=== PATIENT | female | born 1970 | race African-American/Black ===

== ENCOUNTER 2017-03-02 15:09 | Emergency (ER) | payer SELFPAY ==
[~2017-03-02] VITALS: Ht 152.4 cm; Wt 59.0 kg
[2017-03-02 15:27] VITALS: BP 130/78
--- NOTE | 2017-03-02 15:51 | PHYS DOC ---
Past Medical History Past Medical History: No Pertinent History Past Surgical History: , Hysterectomy, Other Additional Past Surgical Histo: BRAIN SX Alcohol Use: None Drug Use: None Adult General Chief Complaint Chief Complaint: EARACHE/EAR PAIN HPI HPI Patient is a 46 year old female presents to the emergency department stating that she has had 1-1/2 weeks of right ear pain and discomfort. She states that she has been having decreased ability to hear out of the right ear. She denies any upper respiratory congestion sore throat or runny nose. She states that she did try to use 2 she did try to clean her out her ear without success. Review of Systems Review of Systems Constitutional: Denies fever or chills [] Eyes: Denies change in visual acuity, redness, or eye pain [] HENT: Denies nasal congestion or sore throat. Right ear discomfort and pain Respiratory: Denies cough or shortness of breath [] Cardiovascular: No additional information not addressed in HPI [] GI: Denies abdominal pain, nausea, vomiting, bloody stools or diarrhea [] : Denies dysuria or hematuria [] Musculoskeletal: Denies back pain or joint pain [] Integument: Denies rash or skin lesions [] Neurologic: Denies headache, focal weakness or sensory changes [] Endocrine: Denies polyuria or polydipsia [] Current Medications Current Medications Current Medications Medications (Trade) Dose Ordered Sig/Stephani Start Time Stop Time Status Last Admin Dose Admin Docusate Sodium (Colace Solution) 100 mg 1X ONCE 03/02/17 16:45 03/02/17 16:49 DC 03/02/17 16:54 100 MG Allergies Allergies Allergies Coded Allergies Type Severity Reaction Last Updated Verified No Known Drug Allergies 03/02/17 No Physical Exam Physical Exam Constitutional: Well developed, well nourished, no acute distress, non-toxic appearance. [] HENT: Normocephalic, atraumatic, bilateral external ears normal, oropharynx moist, no oral exudates, nose normal. Left tympanic membrane normal. Right tympanic membrane unable to visualize due to history of an impaction. Eyes: PERRLA, EOMI, conjunctiva normal, no discharge. [] Neck: Normal range of motion, no tenderness, supple, no stridor. [] Cardiovascular:Heart rate regular rhythm, no murmur [] Lungs & Thorax: Bilateral breath sounds clear to auscultation [] Skin: Warm, dry, no erythema, no rash. [] Back: No tenderness Extremities: No tenderness, no cyanosis, no clubbing, ROM intact, no edema. [] Neurologic: Alert and oriented X 3, normal motor function, normal sensory function, no focal deficits noted. [] Psychologic: Affect normal, judgement normal, mood normal. [] Current Patient Data Vital Signs Vital Signs Date Time Temp Pulse Resp B/P (MAP) Pulse Ox O2 Delivery O2 Flow Rate FiO2 03/02/17 15:27 98.2 70 16 99 Room Air 98.2 EKG EKG [] Radiology/Procedures Radiology/Procedures [] Course & Med Decision Making Course & Med Decision Making Pertinent Labs and Imaging studies reviewed. (See chart for details) Patient's air was irrigated with water and peroxide with minimal relief. Colace was placed into the ear and then reirrigated with minimal results noted. Patient still continues to have large amount of wax in the right ear. Unable to visualize the tympanic membrane. Patient will be placed on amoxicillin with recommendations for Debrox [id number]. Recommended following up with her primary care physician or ENT within the next week. Signs and symptoms to return back to emergency department as been provided. Patient's questions were all answered at bedside. [] Dragon Disclaimer Dragon Disclaimer This electronic medical record was generated, in whole or in part, using a voice recognition dictation system. Departure Departure Impression: Primary Impression: Impacted cerumen, right ear Disposition: 01 HOME, SELF-CARE Condition: STABLE Referrals: NO PCP (PCP) Patient Instructions: Cerumen Impaction Additional Instructions: Your area was irrigated twice to remove earwax without relief. You may purchase Debrox [id number] in which will help relieve the wax to be easily removed. He'll be covered for antibiotic for a potential infection as the tympanic membrane is unable to be visualized. Follow-up with your primary care physician or an ENT within the next week. You may contact an ENT either at [facility] or a for further evaluation. Return back to emergency prior signs and symptoms of become worse. Scripts Amoxicillin (AMOXICILLIN) 500 Mg Capsule 1 CAP PO BID, #20 CAP Prov: HEATHER MORAN APRN 03/02/17 HEATHER MORAN APRN Mar 02, 2017 15:51
[2017-03-02] MEDS ORDERED: DOCUSATE 100 MG/10 ML SOLUTION. AD ONE (16:45)
[2017-03-02] MEDS ORDERED: AMOX500C PO (17:56)
== END 2017-03-02 18:00 | disposition home or self-care (01) ==
LOC: ER 15:09
DX: H61.21 Impacted cerumen, right ear (principal)
CPT/HCPCS: 99283

== ENCOUNTER 2019-04-25 08:35 | Inpatient (IN) | payer SELFPAY ==
[~2019-04-25] VITALS: Ht 152.4 cm; Wt 61.2 kg
[~2019-04-25 08:35] MED LIST: AMOX500C PO
--- NOTE | 2019-04-25 08:56 | PHYS DOC ---
Past Medical History Past Medical History: No Pertinent History Past Surgical History: , Hysterectomy, Other Additional Past Surgical Histo: BRAIN SX Alcohol Use: None Drug Use: None Adult General Chief Complaint Chief Complaint: FINGER INJURY [facility] HPI Patient is a 49 year old handed female who presents with complaining of left middle finger pain. Patient states she was scrubbing her kitchen of the floor and had this pain in keep of left middle finger 4 days ago with received edema and pain and tenderness of her finger. Patient denies fever and chills and focal neurodeficit. Patient is up-to-date with tetanus immunization. Review of Systems Review of Systems Constitutional: Denies fever or chills [] Eyes: Denies change in visual acuity, redness, or eye pain [] HENT: Denies nasal congestion or sore throat [] Respiratory: Denies cough or shortness of breath [] Cardiovascular: No additional information not addressed in HPI [] GI: Denies abdominal pain, nausea, vomiting, bloody stools or diarrhea [] : Denies dysuria or hematuria [] Musculoskeletal: Denies back pain, reports joint pain [] Integument: Denies rash or skin lesions [] Neurologic: Denies headache, focal weakness or sensory changes [] Endocrine: Denies polyuria or polydipsia [] All other systems were reviewed and found to be within normal limits, except as documented in this note. Current Medications Current Medications Current Medications Medications (Trade) Dose Ordered Sig/[facility] Start Time Stop Time Status Last Admin Dose Admin Lidocaine HCl (Lidocaine 1% 20ml Vial) 20 ml 1X ONCE 04/25/19 09:00 04/25/19 09:01 DC Allergies Allergies Allergies Coded Allergies Type Severity Reaction Last Updated Verified No Known Drug Allergies 03/02/17 No Physical Exam Physical Exam Constitutional: Well developed, well nourished, mild distress, non-toxic appearance. [] HENT: Normocephalic, atraumatic. Eyes: PERRLA, EOMI, conjunctiva normal, no discharge. [] Neck: Normal range of motion, no tenderness, supple, no stridor. [] Cardiovascular:Heart rate regular rhythm, no murmur [] Lungs & Thorax: Bilateral breath sounds clear to auscultation [] Extremities: Left middle finger with moderate edema and mild erythema with tenderness of tip of finger with abscess of finger tip in volar side without drainage of pus . Neurologic: Alert and oriented X 3, no focal deficits noted. [] Psychologic: Affect normal, judgement normal, mood normal. [] Current Patient Data Vital Signs Vital Signs Date Time Temp Pulse Resp B/P (MAP) Pulse Ox O2 Delivery O2 Flow Rate FiO2 04/25/19 08:55 98.0 78 14 120/70 (87) 98 Room Air 98.0 EKG EKG [] Radiology/Procedures Radiology/Procedures [][facility] [address] [place] [address] IMAGING REPORT Signed PATIENT: OTF GREER ACCOUNT: [id number] : 1970 LOCATION: ER AGE: 49 SEX: F EXAM STATUS: REG ER ORD. PHYSICIAN: ISAIAH CARPIO MD REASON: middle finger possible foreign body PROCEDURE: FINGER(S) LEFT 3 view study of the third digit left hand Clinical indications: foreign body FINDINGS: There is a 13 mm metallic nail within the soft tissues just anterior to the distal phalanx. No fracture or lytic process or dislocation is seen. IMPRESSION: 13 mm metallic nail within the distal third digit of the left hand. Electronically signed by: Maura Posada MD (04/25/2019 9:20 AM) [id number] DICTATED and SIGNED BY: MAURA POSADA MD DATE: 04/25/19919 Course & Med Decision Making Course & Med Decision Making Pertinent Labs and Imaging studies reviewed. (See chart for details) Evaluation of patient in ER showed 49-year-old female patient with injury and foreign body of left middle finger. X-ray showed large metallic needle in deep pulsatile finger. On- call orthopedic physician Dr Moreira was consulted at 09 and recommended to admit patient for surgical treatment of foreign body and abscess of left middle finger.Patient requiring admission for further evaluation and treatment. Discussed with Dr. Villarreal who is in agreement with admission. Discussed findings and plan with patient and family, who acknowledge understanding and agreement. Dragon Disclaimer Dragon Disclaimer This electronic medical record was generated, in whole or in part, using a voice recognition dictation system. Departure Departure Impression: Primary Impression: Foreign body of left middle finger with infection Disposition: 09 ADMITTED INPATIENT (at 1008) Admitting Physician: FILIPPO (Dr. Villarreal accepted admission at 1007) Condition: STABLE Referrals: NO PCP (PCP) ISAIAH CARPIO MD Apr 25, 2019 08:56
[2019-04-25] MEDS ORDERED: LIDOCAINE 1% Multi-Dose 20 ML VIAL. INJ ONE (09:00)
--- NOTE | 2019-04-25 09:23 | RAD ---
3 view study of the third digit left hand Clinical indications: foreign body FINDINGS: There is a 13 mm metallic nail within the soft tissues just anterior to the distal phalanx. No fracture or lytic process or dislocation is seen. IMPRESSION: 13 mm metallic nail within the distal third digit of the left hand. Electronically signed by: Dimitris Posada MD (04/25/2019 9:20 AM) [id number]
[2019-04-25 10:18] LABS: BASO % 1 % (0-3); EOS % 1 % (0-3); HEMATOCRIT 41.4 % (36.0-47.0); HEMOGLOBIN 13.6 g/dL (12.0-15.5); LYMPH # 1.2 x10^3/uL (1.0-4.8); LYMPH % 29 % (24-48); MEAN CORPUSCULAR HEMOGLOBIN 28 pg (25-35); MEAN CORPUSCULAR HGB CONC 33 g/dL (31-37); MEAN CORPUSCULAR VOLUME 86 fL (79-100); MONO # 0.3 x10^3/uL (0.0-1.1); MONO % 8 % (0-9); NEUT # 2.5 x10^3/uL (1.8-7.7); NEUT % 62 % (31-73); PLATELET COUNT 160 x10^3/uL (140-400); RED BLOOD COUNT 4.83 x10^6/uL (3.50-5.40); RED CELL DISTRIBUTION WIDTH 13.6 % (11.5-14.5)
--- NOTE | 2019-04-25 10:30 | PDOC1 ---
History and Physical Date of Admission Date of Admission DATE: 04/25/19 TIME: 10:29 Identification/Chief Complaint Chief Complaint seen in er , 49 year old handed female who presents with complaining of left middle finger pain. Patient states she was scrubbing her kitchen of the floor, Thursday, x-ray shows deep foreign body ? NAIL left distal middle finger, exam, c/w cellulitis, MODERATE edema Past Medical History Past Medical History Past Medical History Past Medical History: No Pertinent History Past Surgical History: , Hysterectomy, Other Additional Past Surgical Histo: BRAIN SX Alcohol Use: None Drug Use: None fhx hyperlipidemia GI: No pertinent hx Heme/Onc: No pertinent hx Rheumatologic: No pertinent hx Infectious disease: No pertinent hx ENT: No pertinent hx Renal/: No pertinent hx Endocrine: No pertinent hx Dermatology: No pertinent hx Family History Family History: High Cholestrol Social History Smoke: <1 pack per day ALCOHOL: none Drugs: None Current Problem List Problem List Problems Medical Problems: (1) Foreign body of left middle finger with infection Status: Acute Current Medications Current Medications Current Medications Lidocaine HCl (Lidocaine 1% 20ml Vial) 20 ml 1X ONCE INJ ; Start 04/25/19 at 09 :00; Stop 04/25/19 at 09:01; Status DC Active Scripts Active Amoxicillin 500 Mg Capsule 1 Cap PO BID Allergies Allergies: Coded Allergies: No Known Drug Allergies (Unverified , 03/02/17) ROS Review of System Review of Systems Review of Systems Constitutional: Denies fever or chills [] Eyes: Denies change in visual acuity, redness, or eye pain [] HENT: Denies nasal congestion or sore throat [] Respiratory: Denies cough or shortness of breath [] Cardiovascular: No additional information not addressed in HPI [] GI: Denies abdominal pain, nausea, vomiting, bloody stools or diarrhea [] : Denies dysuria or hematuria [] Musculoskeletal: Denies back pain, reports joint pain left middle digit [] Integument: Denies rash or skin lesions [] Neurologic: Denies headache, focal weakness or sensory changes [] Endocrine: Denies polyuria or polydipsia [] All other systems were reviewed and found to be within normal limits, except as documented in this note. Physical Exam Physical Exam Neck: Normal range of motion, no tenderness, supple, no stridor. [] Cardiovascular:Heart rate regular rhythm, no murmur [] Lungs & Thorax: Bilateral breath sounds clear to auscultation [] Extremities: Left middle finger with moderate edema and mild erythema with tenderness of tip of finger with abscess of finger tip in volar side without drainage of pus . Neurologic: Alert and oriented X 3, no focal deficits noted. [] Psychologic: Affect normal, judgement normal, mood normal. [] cn 2-12 grossly intact General: Alert, Oriented X3, Cooperative, No acute distress HEENT: Atraumatic, PERRLA, EOMI, Mucous membr. moist/pink Lungs: Clear to auscultation Heart: S1S2, RRR Breasts: Not examined Abdomen: Normal bowel sounds, Soft Rectal Exam: not examined PELVIC: Examination not indicated Extremities: No clubbing, No cyanosis, Other (LEFT 3RD FINGER SWOLLEN, TENDER) Neuro: Normal speech, Normal tone, Sensation intact, Cranial nerves 3-12 NL Psych/Mental Status: Mental status NL, Mood NL Vitals Vitals Vital Signs Date Time Temp Pulse Resp B/P (MAP) Pulse Ox O2 Delivery O2 Flow Rate FiO2 04/25/19 08:55 98.0 78 14 120/70 (87) 98 Room Air 98.0 Labs Labs Laboratory Tests Test 04/25/19 10:03 White Blood Count 4.0 x10^3/uL (4.0-11.0) Red Blood Count 4.83 x10^6/uL (3.50-5.40) Hemoglobin 13.6 g/dL (12.0-15.5) Hematocrit 41.4 % (36.0-47.0) Mean Corpuscular Volume 86 fL (79-100) Mean Corpuscular Hemoglobin 28 pg (25-35) Mean Corpuscular Hemoglobin Concent 33 g/dL (31-37) Red Cell Distribution Width 13.6 % (11.5-14.5) Platelet Count 160 x10^3/uL (140-400) Neutrophils (%) (Auto) 62 % (31-73) Lymphocytes (%) (Auto) 29 % (24-48) Monocytes (%) (Auto) 8 % (0-9) Eosinophils (%) (Auto) 1 % (0-3) Basophils (%) (Auto) 1 % (0-3) Neutrophils # (Auto) 2.5 x10^3/uL (1.8-7.7) Lymphocytes # (Auto) 1.2 x10^3/uL (1.0-4.8) Monocytes # (Auto) 0.3 x10^3/uL (0.0-1.1) Eosinophils # (Auto) 0.0 x10^3/uL (0.0-0.7) Basophils # (Auto) 0.0 x10^3/uL (0.0-0.2) Laboratory Tests Test 04/25/19 10:03 White Blood Count 4.0 x10^3/uL (4.0-11.0) Red Blood Count 4.83 x10^6/uL (3.50-5.40) Hemoglobin 13.6 g/dL (12.0-15.5) Hematocrit 41.4 % (36.0-47.0) Mean Corpuscular Volume 86 fL (79-100) Mean Corpuscular Hemoglobin 28 pg (25-35) Mean Corpuscular Hemoglobin Concent 33 g/dL (31-37) Red Cell Distribution Width 13.6 % (11.5-14.5) Platelet Count 160 x10^3/uL (140-400) Neutrophils (%) (Auto) 62 % (31-73) Lymphocytes (%) (Auto) 29 % (24-48) Monocytes (%) (Auto) 8 % (0-9) Eosinophils (%) (Auto) 1 % (0-3) Basophils (%) (Auto) 1 % (0-3) Neutrophils # (Auto) 2.5 x10^3/uL (1.8-7.7) Lymphocytes # (Auto) 1.2 x10^3/uL (1.0-4.8) Monocytes # (Auto) 0.3 x10^3/uL (0.0-1.1) Eosinophils # (Auto) 0.0 x10^3/uL (0.0-0.7) Basophils # (Auto) 0.0 x10^3/uL (0.0-0.2) Images Images 3 view study of the third digit left hand Clinical indications: foreign body FINDINGS: There is a 13 mm metallic nail within the soft tissues just anterior to the distal phalanx. No fracture or lytic process or dislocation is seen. IMPRESSION: 13 mm metallic nail within the distal third digit of the left hand. Electronically signed by: Dimitris Posada MD (04/25/2019 9:20 AM) [id number] VTE Prophylaxis Ordered VTE Prophylaxis Devices: Yes VTE Pharmacological Prophylaxi: Yes Assessment/Plan Assessment/Plan IMPRESSION: 13 mm metallic nail within the distal third digit of the left hand. cellulitis of DISTAL DIGITdigit plan admit iv antibiotics, EMPERIC ROCEPHIN consult ortho-, DR MO FOR fb REMOVAL PAIN CONTROL DVT PROPHYLAXIS, SCD'S CBC, INR 52 MIN PT EXAM, CHART REVIEW, > 50% OF TIME SPENT WITH EXAM, CHART REVIEW, PT CARE COORDINATION FERNANDO MELENDREZ MD Apr 25, 2019 10:29
[2019-04-25] MEDS ORDERED: ALBUTEROL SULFATE 2.5 MG/3 ML NEBU. NEB PRN (10:45)
[2019-04-25] MEDS ORDERED: 0.9 % SODIUM CHLORIDE 10 ML DISP.SYRIN. IV PRN (10:45)
[2019-04-25] MEDS ORDERED: ZOLPIDEM 5 MG TABLET. PO PRN (10:45)
[2019-04-25] MEDS ORDERED: ONDANSETRON PF 4 MG/2 ML VIAL. IV PRN ×2 (10:45→12:30)
[2019-04-25] MEDS ORDERED: MAG HYDROX/ALUMINUM HYD/SIMETH 30 ML ORAL.SUSP PO PRN (10:45)
[2019-04-25] MEDS ORDERED: guaiFENesin ORAL 200 MG/10 ML LIQUID. PO PRN (10:45)
[2019-04-25] MEDS ORDERED: ACETAMINOPHEN 325 MG TABLET. PO PRN (10:45)
[2019-04-25] MEDS ORDERED: LORazepam 0.5 MG TABLET PO PRN (10:45)
[2019-04-25] MEDS ORDERED: DOCUSATE SODIUM 100 MG CAPSULE. PO PRN (10:45)
[2019-04-25] MEDS ORDERED: cloNIDine HCL 0.1 MG TABLET PO PRN (10:45)
[2019-04-25 10:54] LABS: CALCIUM 9.1 mg/dL (8.5-10.1); CREATININE 0.8 mg/dL (0.6-1.0); GFR 91.5
[2019-04-25 10:55] LABS: PROTHROMBIN TIME PATIENT 13.2 SEC (11.7-14.0)
[2019-04-25 11:00] LABS: ALBUMIN 3.7 g/dL (3.4-5.0); ALBUMIN/GLOBULIN RATIO 0.9 (1.0-1.7); TOTAL BILIRUBIN 0.4 mg/dL (0.2-1.0); TOTAL PROTEIN 7.7 g/dL (6.4-8.2)
[2019-04-25] MEDS ORDERED: cefTRIAXone IV Push 1 GM VIAL. IVP SCH (11:00)
[2019-04-25] MEDS: IV NORMAL SALINE 1000ML BAG 1,000 ML IV SCH ×2 (11:50→21:47)
[2019-04-25] MEDS: PIPERACILLIN/TAZOBACTAM 4.5 GM in IV NORMAL SALINE 100ML 100 ML IV SCH ×3 (11:50→23:35)
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
[2019-04-25] MEDS ORDERED: IV RINGERS,LACTATED 1000ML 1,000 ML IV SCH (12:20)
[2019-04-25] MEDS ORDERED: MORPHINE SULFATE 2 MG/ML VIAL. IV PRN (12:30)
[2019-04-25] MEDS ORDERED: fentaNYL PF VIAL 100 MCG/2 ML VIAL IV PRN (12:30)
[2019-04-25] MEDS ORDERED: HYDROmorphone 2 MG/ML VIAL IV PRN (12:30)
[2019-04-25] MEDS ORDERED: LIDOCAINE 1% PF 2 ML VIAL. ID PRN (12:30)
[2019-04-25] MEDS ORDERED: PROCHLORPERAZINE 10 MG/2 ML VIAL. IV PRN (12:30)
--- NOTE | 2019-04-25 12:46 | PDOC ---
Infectious Disease Note Vital Sign Vital Signs Vital Signs Date Time Temp Pulse Resp B/P (MAP) Pulse Ox O2 Delivery O2 Flow Rate FiO2 04/25/19 10:13 66 19 161/65 (97) 04/25/19 08:55 98.0 98 Room Air 98.0 Labs Lab Laboratory Tests Test 04/25/19 10:03 White Blood Count 4.0 x10^3/uL (4.0-11.0) Red Blood Count 4.83 x10^6/uL (3.50-5.40) Hemoglobin 13.6 g/dL (12.0-15.5) Hematocrit 41.4 % (36.0-47.0) Mean Corpuscular Volume 86 fL (79-100) Mean Corpuscular Hemoglobin 28 pg (25-35) Mean Corpuscular Hemoglobin Concent 33 g/dL (31-37) Red Cell Distribution Width 13.6 % (11.5-14.5) Platelet Count 160 x10^3/uL (140-400) Neutrophils (%) (Auto) 62 % (31-73) Lymphocytes (%) (Auto) 29 % (24-48) Monocytes (%) (Auto) 8 % (0-9) Eosinophils (%) (Auto) 1 % (0-3) Basophils (%) (Auto) 1 % (0-3) Neutrophils # (Auto) 2.5 x10^3/uL (1.8-7.7) Lymphocytes # (Auto) 1.2 x10^3/uL (1.0-4.8) Monocytes # (Auto) 0.3 x10^3/uL (0.0-1.1) Eosinophils # (Auto) 0.0 x10^3/uL (0.0-0.7) Basophils # (Auto) 0.0 x10^3/uL (0.0-0.2) Prothrombin Time 13.2 SEC (11.7-14.0) Prothromb Time International Ratio 1.0 (0.8-1.1) Sodium Level 143 mmol/L (136-145) Potassium Level 4.0 mmol/L (3.5-5.1) Chloride Level 106 mmol/L (98-107) Carbon Dioxide Level 28 mmol/L (21-32) Anion Gap 9 (6-14) Blood Urea Nitrogen 13 mg/dL (7-20) Creatinine 0.8 mg/dL (0.6-1.0) Estimated GFR (Cockcroft-Gault) 91.5 BUN/Creatinine Ratio 16 (6-20) Glucose Level 85 mg/dL (70-99) Calcium Level 9.1 mg/dL (8.5-10.1) Total Bilirubin 0.4 mg/dL (0.2-1.0) Aspartate Amino Transf (AST/SGOT) 15 U/L (15-37) Alanine Aminotransferase (ALT/SGPT) 15 U/L (14-59) Alkaline Phosphatase 59 U/L (46-116) Total Protein 7.7 g/dL (6.4-8.2) Albumin 3.7 g/dL (3.4-5.0) Albumin/Globulin Ratio 0.9 (1.0-1.7) Micro IMPRESSION: 13 mm metallic nail within the distal third digit of the left hand Objective Assessment Left 3 rd finger cellulitis 3 rd finger ? abscess Foreign body HTN Plan Plan of Care Changed abx to zosyn/Dapto TDAP Surgery today F/u labs and cults D/w nursing Thank you # [id number] MITCHELL WESTBROOK MD Apr 25, 2019 12:46
[2019-04-25] MEDS ORDERED: TETANUS AND DIPHTHERIA TOX/PF 0.5 ML DISP.SYRIN. VAX IM ONE (13:00)
[2019-04-25] MEDS ORDERED: BUPIVACAINE-EPI 0.25%-1:200000 MPF 30 ML VIAL. INJ ONE (13:00)
[2019-04-25] MEDS: DAPTOMYCIN IV SCH (13:18)
[2019-04-25] MEDS: NORMAL SALINE IV SCH (13:18)
--- NOTE | 2019-04-25 13:33 | CONS ---
DATE OF CONSULTATION: 04/25/2019 INFECTIOUS DISEASE CONSULTATION PATIENT ROOM: 562. REQUESTING PHYSICIAN: Chavo Villarreal MD REASON FOR CONSULTATION: Finger infection, questionable foreign object. HISTORY OF PRESENT ILLNESS: The patient is a 49-year-old female who states last João, she was scrubbing her floors with her left hand. She was close to the restroom and in the hallway, she states she has wood floors and she was scrubbing she felt pain in her left finger. Over the course of the next several days, she developed increasing pain and swelling in the finger, so she presented to [facility]. She has been afebrile. She had normal white blood cell count. She underwent an x-ray showed a 13 mm metallic nail within the distal third of the left hand. She was using a scrub tile. She was not using a Brillo pad or metallic brush. She has now been admitted and awaiting for surgery. Rocephin was ordered; however, I discontinued this and began daptomycin and Zosyn. Additionally, she cannot remember when she had a last tetanus shot before this order. She denies any history of staph or strep infections or urinary tract infections. PAST MEDICAL HISTORY: Essentially negative. PAST SURGICAL HISTORY: Positive for , partial hysterectomy and brain surgery when she was a child, she does not know what they did. REVIEW OF SYSTEMS: No fevers or chills. No headaches. No sinus issues, sore throat or cough. No dysuria, frequency or urgency. No rashes. No diarrhea. Otherwise symptoms are negative. ALLERGIES: No known drug allergies. SOCIAL HISTORY: She is a smoker. She has a dog in the house, no small children and she is . FAMILY HISTORY: Positive for hyperlipidemia. CURRENT MEDICATIONS: Rocephin has been discontinued. Daptomycin and Zosyn have been started as well as the Tdap has been ordered and other p.r.n. medications are available. PHYSICAL EXAMINATION: VITAL SIGNS: She is afebrile, temperature 98, pulse 66, respirations 19, blood pressure 161/65, she is satting 98% on room air. CONSTITUTIONAL: She is pleasant. She is cooperative. She is no acute distress. She is lying in bed. She wears glasses. HEENT: Pupils are equal and reactive. Normal conjunctivae. Oral cavity, pharynx is clear. NECK: Supple. Good range of motion. LUNGS: Clear to auscultation bilaterally. HEART: S1, S2. ABDOMEN: Flat, soft, nontender, nondistended with positive bowel sounds. EXTREMITIES: Without clubbing or cyanosis. No gross edema. Her left third finger is swollen. She has good sensation. She has cap refill, has mild tenderness associated with it. There is no gross erythema. NEUROLOGIC: She is nonfocal, moves all extremities. LABORATORY DATA: White count 4, hemoglobin 13.6, platelets 162, neutrophils 62 and lymphs are 29. Creatinine 0.8 with normal liver function study tests. RADIOLOGY: Reviewed in history of present illness. IMPRESSION: 1. Left third finger cellulitis. 2. Left third finger questionable abscess. 3. Foreign body. 4. Hypertension. RECOMMENDATIONS: Again, change antibiotics to Zosyn and daptomycin. Tdap has been ordered. Surgery today. Follow up labs and cultures. This was discussed with nursing. Thanks for the patient's care. Should you have any questions, please do not hesitate to contact me. MITCHELL WESTBROOK MD DR: GARIMA/maurene JOB#: [id number] / [id number] CHAVO Kaur MD
[2019-04-25] MEDS ORDERED: BUPIVACAINE MPF 0.25% 30 ML VIAL. ONE (14:31)
[2019-04-25] MEDS ORDERED: PROPOFOL 20 ML IV ONE (14:49)
[2019-04-25] MEDS ORDERED: LIDOCAINE 1% PF 5 ML VIAL. ONE (14:49)
[2019-04-25] MEDS ORDERED: FAMOTIDINE 20 MG/2 ML VIAL ONE ×2 (14:49→15:26)
[2019-04-25] MEDS ORDERED: fentaNYL PF VIAL 100 MCG/2 ML VIAL ONE (14:50)
[2019-04-25 15:00] VITALS: BP 125/72
[2019-04-25] MEDS ORDERED: ONDANSETRON PF 4 MG/2 ML VIAL. ONE (15:26)
[2019-04-25] MEDS ORDERED: DEXAMETHASONE SOD PHOS 4 MG/ML VIAL ONE (15:26)
[2019-04-25] MEDS ORDERED: MIDAZOLAM HCL/PF 2 MG/2 ML VIAL. ONE (15:27)
[2019-04-25] MEDS ORDERED: PHENYLEPHRINE in 0.9% NACL PF 1 MG/10 ML SYRINGE. IV ONE (15:35)
[2019-04-25] MEDS ORDERED: ePHEDrine PF IN SALINE 50 MG/10 ML SYRINGE. IV ONE (15:36)
--- NOTE | 2019-04-25 16:27 | PDOC4 ---
Operative Note Operative Note Date of Procedure: April 25, 2019 Pre-Op Diagnoses: * ICD-10 Code: M65.042 Abscess of tendon sheath, left hand * ICD-10 Code: M79.5 Residual foreign body in soft tissue Post-Op Diagnoses: * ICD-10 Code: M65.042 Abscess of tendon sheath, left hand * ICD-10 Code: M79.5 Residual foreign body in soft tissue Procedures: * CPT 94106 left middle finger, drainage of tendon sheath * CPT 41135 left middle finger arthrotomy, with exploration, drainage, and removal of foreign body interphalangeal joint Surgeon: Alejandro Moreira MD Anesthesia: General EBL: 5 mL Specimens Obtained: Foreign body left middle finger, permanent specimen. Cultures left finger abscess aerobic and anaerobic Complications: none Drains: none Findings: Metallic foreign body most consistent with a needle, surrounding pus involves the flexor tendon sheath. The distal interphalangeal joint was irrigated but did not have pus. 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 X-rays show a metallic foreign body adjacent to the bone and flexor tendon and distal interphalangeal joint. She was unable to remove this at the time of injury, and now the swelling pain and redness are getting worse. I recommended surgical exploration, removal of the foreign body, irrigation of the flexor tendon sheath, and irrigation of the interphalangeal joint. We discussed the potential risks of neurovascular injury particularly to the digital nerves, recurrent or persistent infection such as flexor tenosynovitis or interphalangeal joint septic joint, postoperative stiffness or scarring, or other potential surgical or anesthetic complications. All of her questions about surgery were answered and she desired to proceed. Procedure in Detail: The patient was identified in the preoperative holding area. The correct left middle finger was marked by me. The patient was taken to the operating room where general anesthesia was used. The patient was positioned supine on the operating table. She remains on scheduled antibiotics so no additional doses were given. A timeout procedure was performed. A pneumatic tourniquet was applied to the forearm below the IV site but this tourniquet was not used. The limb was prepared in sterile fashion with ChloraPrep, and sterile drapes were applied. A Clover drain was placed around the base of the left long finger and secured with a hemostat for a digital tourniquet. Initially I had discussed with the patient Marifer incisions, however the mid axial incision does seem more logical. I did this on the ulnar aspect since the ulnar side is less important for day to day function, and the proximal and most superficial portion of the foreign body is also along the ulnar aspect. It is unclear where the entry wound for this foreign body was located, there is no appreciable entry wound at this time. The mid axial incision was made carefully using a 15 blade scalpel through the skin only to prevent digital nerve injury. I then switched to curved iris scissors and did careful scissor dissection to prevent digital nerve injury. The digital nerves were retracted volarly, using skin hooks, held by my software support technician. The interphalangeal joint was opened, and synovial fluid was encountered. Further dissection distally entered the flexor tendon sheath, and there was a small amount of purulent fluid. The foreign body was encountered in this space, a metallic structure probably a piece of a broken sewing needle. Cultures were taken. A hemostat was used to remove the foreign body. I then used a 24-gauge Jelco, and a 12 mL syringe and I irrigated thoroughly the flexor tendon sheath, and the interphalangeal joint. The Sherita tourniquet was released. Bipolar electrocautery was used for hemo stasis, with care made not to injure the digital nerves. The incision was closed in a single layer with 3-0 Prolene simple interrupted sutures. A digital block was performed with 0.25% bupivacaine without epinephrine. Xeroform sterile dressing was used along with tube gauze. Needle and sponge counts were correct. There were no apparent complications. The Clover tourniquet time was approximately 20 minutes. Postoperatively I would recommend intravenous antibiotics for another 24-48 hours and possible conversion at that point to oral antibiotics if there is no ongoing inflammation of the flexor tendon sheath. She may get the incision wet using soap and water to wash the finger beginning 04/28/19. ALEJANDRO MOREIRA MD Apr 25, 2019 16:27
[2019-04-25] MEDS: fentaNYL PF VIAL 100 MCG/2 ML VIAL IV PRN ×2 (16:43→16:56)
[2019-04-25 19:00] VITALS: BP 120/72
[2019-04-25 22:50] VITALS: BP 92/52
[2019-04-26 03:00] VITALS: BP 118/63
[2019-04-26] MEDS: PIPERACILLIN/TAZOBACTAM 4.5 GM in IV NORMAL SALINE 100ML 100 ML IV SCH ×3 (05:56→18:21)
[2019-04-26] MEDS: IV NORMAL SALINE 1000ML BAG 1,000 ML IV SCH ×3 (05:57→20:28)
[2019-04-26 07:00] VITALS: BP 106/61
[2019-04-26] MEDS ORDERED: HYDROcodone/APAP 5/325MG 1 TAB TABLET PO PRN (08:15)
[2019-04-26] MEDS: CELECOXIB 100 MG CAPSULE. PO SCH ×2 (08:38→20:29)
--- NOTE | 2019-04-26 09:10 | PDOC ---
Infectious Disease Note Subjective Subjective Doing ok. Has some pain No F/C/S/N/V/d/SOA/rash ROS ROS o/w neg Vital Sign Vital Signs Vital Signs Date Time Temp Pulse Resp B/P (MAP) Pulse Ox O2 Delivery O2 Flow Rate FiO2 04/26/19 07:40 Room Air 04/26/19 07:00 98.1 63 16 106/61 (76) 97 98.1 04/26/19 03:00 8.0 Physical Exam PHYSICAL EXAM CONSTITUTIONAL: She is pleasant. She is cooperative. She is no acute distress. She is lying in bed. She wears glasses. HEENT: Pupils are equal and reactive. Normal conjunctivae. Oral cavity, pharynx is clear. NECK: Supple. Good range of motion. LUNGS: Clear to auscultation bilaterally. HEART: S1, S2. ABDOMEN: Flat, soft, nontender, nondistended with positive bowel sounds. EXTREMITIES: Without clubbing or cyanosis. No gross edema. Her left third finger is dressed. NEUROLOGIC: She is nonfocal, moves all extremities. Affect - appropriate Labs Lab Laboratory Tests Test 04/25/19 10:03 White Blood Count 4.0 x10^3/uL (4.0-11.0) Red Blood Count 4.83 x10^6/uL (3.50-5.40) Hemoglobin 13.6 g/dL (12.0-15.5) Hematocrit 41.4 % (36.0-47.0) Mean Corpuscular Volume 86 fL (79-100) Mean Corpuscular Hemoglobin 28 pg (25-35) Mean Corpuscular Hemoglobin Concent 33 g/dL (31-37) Red Cell Distribution Width 13.6 % (11.5-14.5) Platelet Count 160 x10^3/uL (140-400) Neutrophils (%) (Auto) 62 % (31-73) Lymphocytes (%) (Auto) 29 % (24-48) Monocytes (%) (Auto) 8 % (0-9) Eosinophils (%) (Auto) 1 % (0-3) Basophils (%) (Auto) 1 % (0-3) Neutrophils # (Auto) 2.5 x10^3/uL (1.8-7.7) Lymphocytes # (Auto) 1.2 x10^3/uL (1.0-4.8) Monocytes # (Auto) 0.3 x10^3/uL (0.0-1.1) Eosinophils # (Auto) 0.0 x10^3/uL (0.0-0.7) Basophils # (Auto) 0.0 x10^3/uL (0.0-0.2) Prothrombin Time 13.2 SEC (11.7-14.0) Prothromb Time International Ratio 1.0 (0.8-1.1) Sodium Level 143 mmol/L (136-145) Potassium Level 4.0 mmol/L (3.5-5.1) Chloride Level 106 mmol/L (98-107) Carbon Dioxide Level 28 mmol/L (21-32) Anion Gap 9 (6-14) Blood Urea Nitrogen 13 mg/dL (7-20) Creatinine 0.8 mg/dL (0.6-1.0) Estimated GFR (Cockcroft-Gault) 91.5 BUN/Creatinine Ratio 16 (6-20) Glucose Level 85 mg/dL (70-99) Calcium Level 9.1 mg/dL (8.5-10.1) Total Bilirubin 0.4 mg/dL (0.2-1.0) Aspartate Amino Transf (AST/SGOT) 15 U/L (15-37) Alanine Aminotransferase (ALT/SGPT) 15 U/L (14-59) Alkaline Phosphatase 59 U/L (46-116) Total Protein 7.7 g/dL (6.4-8.2) Albumin 3.7 g/dL (3.4-5.0) Albumin/Globulin Ratio 0.9 (1.0-1.7) Micro IMPRESSION: 13 mm metallic nail within the distal third digit of the left hand Objective Assessment Left 3 rd finger cellulitis 3 rd finger ? abscess s/p I and D Foreign body - needle removed 04/25 HTN Plan Plan of Care Changed abx to zosyn/Dapto TDAP 04/25 F/u labs and cults MITCHELL WESTBROOK MD Apr 26, 2019 09:10
[2019-04-26 10:55] VITALS: BP 110/62
--- NOTE | 2019-04-26 11:03 | PDOC ---
PROGRESS NOTES Chief Complaint Chief Complaint 13 mm metallic foreign body left third finger, sp removal I and D History of Present Illness History of Present Illness NO limitation in ROM MIldly swolllen as expected post op SHe has a couple of stitches there, wound closed NO fevers ID has changed to dapto and zosyn PLAn: Follow cx\ DApto, zosyn Will dc once changed to PO abx Vitals Vitals Vital Signs Date Time Temp Pulse Resp B/P (MAP) Pulse Ox O2 Delivery O2 Flow Rate FiO2 04/26/19 10:55 98.0 63 18 110/62 (78) 99 Room Air 98.0 04/26/19 03:00 8.0 Physical Exam Physical Exam CONSTITUTIONAL: She is pleasant. She is cooperative. She is no acute distress. She is lying in bed. She wears glasses. HEENT: Pupils are equal and reactive. Normal conjunctivae. Oral cavity, pharynx is clear. NECK: Supple. Good range of motion. LUNGS: Clear to auscultation bilaterally. HEART: S1, S2. ABDOMEN: Flat, soft, nontender, nondistended with positive bowel sounds. EXTREMITIES: Without clubbing or cyanosis. No gross edema. Her left third finger is dressed. NEUROLOGIC: She is nonfocal, moves all extremities. Affect - appropriate General: Alert, Cooperative Heart: Regular rate, Normal S1, Normal S2 Lungs: Clear Abdomen: Soft Extremities: No clubbing, No cyanosis, Normal pulses, Other (left middle finger shows distal interphalangeal joint and distal phalanx volar swelling. There is some irritation of the flexor tendon sheath and slight tenderness at the tendon sheath along the middle phalanx. She is unable to completely flex the interphalangeal joint slight range of motion. I believe there is a small joint effusion on examination. The extensor tendon and flexor tendon do seem to be intact. There is no longer any obvious entrance or exit wound. There is erythema and severe tenderness. There is focal swelling of the volar pad of the distal phalanx and some circumferential swelling of the digit. Erythema is present at the distal phalanx. The light touch sensation is intact. She is able to sli ghtly flex and extend the distal interphalangeal joint actively.) Review of Systems Review of Systems mild post op pain, otherwise rest of 14 pt neg Assessment and Plan Assessmemt and Plan Problems Medical Problems: (1) Abscess of tendon sheath, left hand Status: Acute (2) Foreign body of left middle finger with infection Status: Acute (3) Residual foreign body in soft tissue Status: Acute Comment Review of Relevant I have reviewed the following items sharron (where applicable) has been applied. Labs Laboratory Tests Test 04/25/19 10:03 White Blood Count 4.0 x10^3/uL (4.0-11.0) Red Blood Count 4.83 x10^6/uL (3.50-5.40) Hemoglobin 13.6 g/dL (12.0-15.5) Hematocrit 41.4 % (36.0-47.0) Mean Corpuscular Volume 86 fL (79-100) Mean Corpuscular Hemoglobin 28 pg (25-35) Mean Corpuscular Hemoglobin Concent 33 g/dL (31-37) Red Cell Distribution Width 13.6 % (11.5-14.5) Platelet Count 160 x10^3/uL (140-400) Neutrophils (%) (Auto) 62 % (31-73) Lymphocytes (%) (Auto) 29 % (24-48) Monocytes (%) (Auto) 8 % (0-9) Eosinophils (%) (Auto) 1 % (0-3) Basophils (%) (Auto) 1 % (0-3) Neutrophils # (Auto) 2.5 x10^3/uL (1.8-7.7) Lymphocytes # (Auto) 1.2 x10^3/uL (1.0-4.8) Monocytes # (Auto) 0.3 x10^3/uL (0.0-1.1) Eosinophils # (Auto) 0.0 x10^3/uL (0.0-0.7) Basophils # (Auto) 0.0 x10^3/uL (0.0-0.2) Prothrombin Time 13.2 SEC (11.7-14.0) Prothromb Time International Ratio 1.0 (0.8-1.1) Sodium Level 143 mmol/L (136-145) Potassium Level 4.0 mmol/L (3.5-5.1) Chloride Level 106 mmol/L (98-107) Carbon Dioxide Level 28 mmol/L (21-32) Anion Gap 9 (6-14) Blood Urea Nitrogen 13 mg/dL (7-20) Creatinine 0.8 mg/dL (0.6-1.0) Estimated GFR (Cockcroft-Gault) 91.5 BUN/Creatinine Ratio 16 (6-20) Glucose Level 85 mg/dL (70-99) Calcium Level 9.1 mg/dL (8.5-10.1) Total Bilirubin 0.4 mg/dL (0.2-1.0) Aspartate Amino Transf (AST/SGOT) 15 U/L (15-37) Alanine Aminotransferase (ALT/SGPT) 15 U/L (14-59) Alkaline Phosphatase 59 U/L (46-116) Total Protein 7.7 g/dL (6.4-8.2) Albumin 3.7 g/dL (3.4-5.0) Albumin/Globulin Ratio 0.9 (1.0-1.7) Medications Current Medications Lidocaine HCl (Lidocaine 1% 20ml Vial) 20 ml 1X ONCE INJ ; Start 04/25/19 at 09:00; Stop 04/25/19 at 09:01; Status DC Ceftriaxone Sodium (Rocephin) 1 gm Q24H IVP ; Start 04/25/19 at 11:00; Stop at 11:11; Status DC Sodium Chloride (Normal Saline Flush) 3 ml QSHIFT PRN IV AFTER MEDS AND BLOOD DRAWS; Start 04/25/19 at 10:45 Sodium Chloride 1,000 ml @ 100 mls/hr Q10H IV Last administered on 04/26/19at 08:37; Start 04/25/19 at 10:41 Ondansetron HCl (Zofran) 4 mg PRN Q4HRS PRN IV NAUSEA/VOMITING Last administered on 04/25/19at 12:06; Start 04/25/19 at 10:45 Zolpidem Tartrate (Ambien) 5 mg PRN QHS PRN PO INSOMNIA; Start 04/25/19 at 10:45 Acetaminophen (Tylenol) 650 mg PRN Q4HRS PRN PO TEMP OVER 100.4F OR MILD PAIN Last administered on 04/25/19at 11:50; Start 04/25/19 at 10:45 Al Hydroxide/Mg Hydroxide (Mylanta Plus Xs) 30 ml PRN DAILY PRN PO HEARTBURN / GAS; Start 04/25/19 at 10:45 Clonidine HCl (Catapres) 0.1 mg PRN Q6HRS PRN PO SBP>160 OR DBP>90; Start 04/25/19 at 10:45 Docusate Sodium (Colace) 100 mg PRN BID PRN PO CONSTIPATION; Start 04/25/19 at 10:45 Albuterol Sulfate (Ventolin Neb Soln) 2.5 mg PRN Q4HRS PRN NEB SHORTNESS OF BREATH; Start 04/25/19 at 10:45 Guaifenesin (Robitussin) 200 mg PRN Q4HRS PRN PO COUGH; Start 04/25/19 at 10:45 Lorazepam (Ativan) 0.5 mg PRN Q4HRS PRN PO ANXIETY / AGITATION; Start 04/25/19 at 10:45 Lorazepam (Ativan Inj) 2 mg PRN Q4HRS PRN IV ANXIETY / AGITATION; Start 04/25/19 at 10:45 Piperacillin Sod/ Tazobactam Sod 4.5 gm/Sodium Chloride 100 ml @ 200 mls/hr Q6HRS IV Last administered on 04/26/19at 05:56; Start 04/25/19 at 12:00 Daptomycin 370 mg/ Sodium Chloride 50 ml @ 100 mls/hr Q24H IV Last administered on 04/25/19at 13:18; Start 04/25/19 at 13:00 Bupivacaine HCl/ Epinephrine Bitart (Sensorcaine-Epi 0.25%-1:228890 Mpf) 30 ml 1X ONCE INJ ; Start 04/25/19 at 13:00; Stop 04/25/19 at 13:01; Status DC Ondansetron HCl (Zofran) 4 mg PRN Q6HRS PRN IV NAUSEA/VOMITING; Start 04/25/19 at 12:30; Stop 04/25/19 at 19:00; Status DC Fentanyl Citrate (Fentanyl 2ml Vial) 25 mcg PRN Q5MIN PRN IV MILD PAIN 1-3; Start 04/25/19 at 12:30; Stop 04/25/19 at 19:00; Status DC Fentanyl Citrate (Fentanyl 2ml Vial) 50 mcg PRN Q5MIN PRN IV MODERATE TO SEVERE PAIN Last administered on 04/25/19at 16:56; Start 04/25/19 at 12:30; Stop 04/25/19 at 19:00; Status DC Morphine Sulfate (Morphine Sulfate) 1 mg PRN Q10MIN PRN IV SEVERE PAIN 7-10; Start 04/25/19 at 12:30; Stop 04/25/19 at 19:00; Status DC Ringer's Solution 1,000 ml @ 30 mls/hr Q24H IV ; Start 04/25/19 at 12:20; Stop 04/25/19 at 19:00; Status DC Lidocaine HCl (Xylocaine-Mpf 1% 2ml Vial) 2 ml PRN 1X PRN ID PRIOR TO IV START; Start 04/25/19 at 12:30; Stop 04/25/19 at 19:00; Status DC Hydromorphone HCl (Dilaudid) 0.5 mg PRN Q10MIN PRN IV SEV PAIN, Second choice; Start 04/25/19 at 12:30; Stop 04/25/19 at 19:00; Status DC Prochlorperazine Edisylate (Compazine) 5 mg PACU PRN PRN IV NAUSEA, MRX1; Start 04/25/19 at 12:30; Stop 04/25/19 at 19:00; Status DC Tetanus/ Diphtheria Toxoids (Tenivac Syringe) 0.5 ml ONCE ONCE VAX IM Last administered on 04/25/19at 13:20; Start 04/25/19 at 13:00; Stop 04/25/19 at 13:01; Status DC Bupivacaine HCl (Sensorcaine Mpf 0.25%) 30 ml STK-MED ONCE .ROUTE Last administered on 04/25/19at 16:17; Start 04/25/19 at 14:31; Stop 04/25/19 at 14:31; Status DC Propofol 20 ml @ As Directed STK-MED ONCE IV ; Start 04/25/19 at 14:49; Stop 04/25/19 at 14:50; Status DC Famotidine (Pepcid Vial) 20 mg STK-MED ONCE .ROUTE ; Start 04/25/19 at 14:49; Stop 04/25/19 at 14:50; Status DC Lidocaine HCl (Xylocaine-Mpf 1% 5ml Vial) 5 ml STK-MED ONCE .ROUTE ; Start 04/25/19 at 14:49; Stop 04/25/19 at 14:50; Status DC Fentanyl Citrate (Fentanyl 2ml Vial) 100 mcg STK-MED ONCE .ROUTE ; Start 04/25/19 at 14:50; Stop 04/25/19 at 14:50; Status DC Dexamethasone Sodium Phosphate (Decadron) 4 mg STK-MED ONCE .ROUTE ; Start 04/25/19 at 15:26; Stop 04/25/19 at 15:26; Status DC Famotidine (Pepcid Vial) 20 mg STK-MED ONCE .ROUTE ; Start 04/25/19 at 15:26; Stop 04/25/19 at 15:26; Status DC Ondansetron HCl (Zofran) 4 mg STK-MED ONCE .ROUTE ; Start 04/25/19 at 15:26; Stop 04/25/19 at 15:27; Status DC Midazolam HCl (Versed) 2 mg STK-MED ONCE .ROUTE ; Start 04/25/19 at 15:27; Stop 04/25/19 at 15:27; Status DC Phenylephrine HCl (PHENYLEPHRINE in 0.9% NACL PF) 1 mg STK-MED ONCE IV ; Start 04/25/19 at 15:35; Stop 04/25/19 at 15:36; Status DC Ephedrine Sulfate (ePHEDrine PF IN SALINE SYRINGE) 50 mg STK-MED ONCE IV ; Start 04/25/19 at 15:36; Stop 04/25/19 at 15:37; Status DC Celecoxib (CeleBREX) 100 mg BID PO Last administered on 04/26/19at 08:38; Start 04/26/19 at 09:00 Acetaminophen/ Hydrocodone Bitart (Lortab 5/325) 1 tab PRN Q4HRS PRN PO MODERATE PAIN, SEVERE PAIN; Start 04/26/19 at 08:15 Active Scripts Active Amoxicillin 500 Mg Capsule 1 Cap PO BID Vitals/I & O Vital Sign - Last 24 Hours 04/25/19 04/25/19 04/25/19 04/25/19 14:33 15:00 16:16 16:30 Temp 97.2 97.9 97.7 97.2 97.9 97.7 Pulse 59 64 93 69 Resp 14 17 16 16 B/P (MAP) 152/71 125/72 (89) 127/79 128/65 Pulse Ox 100 100 97 100 O2 Delivery Room Air Room Air Simple Mask Room Air O2 Flow Rate 8 04/25/19 04/25/19 04/25/19 04/25/19 16:43 16:45 16:56 17:00 Pulse 65 60 Resp 14 14 14 16 B/P (MAP) 140/79 113/76 Pulse Ox 97 95 96 97 O2 Delivery Room Air Room Air Room Air Room Air 04/25/19 04/25/19 04/26/19 04/26/19 19:00 22:50 03:00 07:00 Temp 97.8 97.9 98.1 98.1 97.8 97.9 98.1 98.1 Pulse 64 58 71 63 Resp 18 18 18 16 B/P (MAP) 120/72 (88) 92/52 (65) 118/63 (81) 106/61 (76) Pulse Ox 100 99 97 97 O2 Delivery Room Air Room Air Room Air Room Air O2 Flow Rate 8.0 8.0 8.0 04/26/19 04/26/19 07:40 10:55 Temp 98.0 98.0 Pulse 63 Resp 18 B/P (MAP) 110/62 (78) Pulse Ox 99 O2 Delivery Room Air Room Air Intake and Output 0 04/25/19 04/25/19 04/26/19 15:00 23:00 07:00 Intake Total 200 ml 1700 ml 580 ml Output Total 5 ml Balance 200 ml 1695 ml 580 ml MAGEN ANDERSON MD Apr 26, 2019 11:03
[2019-04-26] MEDS: DAPTOMYCIN IV SCH (13:13)
[2019-04-26] MEDS: NORMAL SALINE IV SCH (13:13)
[2019-04-26 15:09] VITALS: BP 113/60
--- NOTE | 2019-04-26 16:46 | NUR ---
SW following pt for dc planning. Chart reviewed. Pt lives at home with spouse and is self pay. HCFS will continue to eval eligibility status for programs. ID following. SW will be available as needed.
[2019-04-26 19:00] VITALS: BP 112/57
[2019-04-26] MEDS: LACTOBACILLUS RHAMNOSUS GG 1 CAPSULE. PO SCH (20:28)
[2019-04-26 22:59] VITALS: BP 99/41
[2019-04-27] MEDS: PIPERACILLIN/TAZOBACTAM 4.5 GM in IV NORMAL SALINE 100ML 100 ML IV SCH ×4 (00:32→18:16)
[2019-04-27 03:00] VITALS: BP 110/53
[2019-04-27 07:00] VITALS: BP 123/76
--- NOTE | 2019-04-27 09:03 | PDOC ---
Infectious Disease Note Subjective Subjective Doing ok. No gross pain but says she has some numbness No F/C/S/N/V/d/SOA/rash ROS ROS o/w neg Vital Sign Vital Signs Vital Signs Date Time Temp Pulse Resp B/P (MAP) Pulse Ox O2 Delivery O2 Flow Rate FiO2 04/27/19 07:00 97.8 55 16 123/76 (92) 99 Room Air 97.8 Physical Exam PHYSICAL EXAM CONSTITUTIONAL: She is pleasant. She is cooperative. She is no acute distress. She is lying in bed. she is smiling and laughing HEENT: Pupils are equal and reactive. Normal conjunctivae. Oral cavity, pharynx is clear. NECK: Supple. Good range of motion. LUNGS: Clear to auscultation bilaterally. HEART: S1, S2. ABDOMEN: Flat, soft, nontender, nondistended with positive bowel sounds. EXTREMITIES: Without clubbing or cyanosis. No gross edema. Her left third finger wound is sutured and clean. No gross warmth or erythema. Swelling has improved and has some ROM. good cap refill but some numbness NEUROLOGIC: She is nonfocal, moves all extremities. Affect - appropriate Labs Micro IMPRESSION: 13 mm metallic nail within the distal third digit of the left hand Objective Assessment Left 3 rd finger cellulitis 3 rd finger ? abscess s/p I and D - cult pending based on Op - report joint was involved Foreign body - needle removed 04/25 HTN Plan Plan of Care Cont zosyn/Dapto Will need Midline and out patient abx Consult secondary social studies teacher ? Home Dapto/invanz vs Dapto ? Zosyn continuous infusion TDAP 04/25 F/u labs and cults D/w nursing MITCHELL WESTBROOK MD Apr 27, 2019 09:03
[2019-04-27] MEDS: CELECOXIB 100 MG CAPSULE. PO SCH ×2 (09:12→21:07)
[2019-04-27] MEDS: LACTOBACILLUS RHAMNOSUS GG 1 CAPSULE. PO SCH ×2 (09:12→21:08)
[2019-04-27 09:42] LABS: BASO % 0 % (0-3); EOS % 1 % (0-3); HEMATOCRIT 40.5 % (36.0-47.0); HEMOGLOBIN 13.2 g/dL (12.0-15.5); LYMPH # 1.7 x10^3/uL (1.0-4.8); LYMPH % 43 % (24-48); MEAN CORPUSCULAR HEMOGLOBIN 28 pg (25-35); MEAN CORPUSCULAR HGB CONC 33 g/dL (31-37); MEAN CORPUSCULAR VOLUME 86 fL (79-100); MONO # 0.3 x10^3/uL (0.0-1.1); MONO % 7 % (0-9); NEUT # 1.9 x10^3/uL (1.8-7.7); NEUT % 48 % (31-73); PLATELET COUNT 147 x10^3/uL (140-400); RED BLOOD COUNT 4.69 x10^6/uL (3.50-5.40); RED CELL DISTRIBUTION WIDTH 14.1 % (11.5-14.5)
[2019-04-27 10:07] LABS: CALCIUM 8.9 mg/dL (8.5-10.1); CREATININE 0.9 mg/dL (0.6-1.0); GFR 79.9; POTASSIUM 4.6 mmol/L (3.5-5.1)
--- NOTE | 2019-04-27 10:14 | PDOC ---
PROGRESS NOTES Chief Complaint Chief Complaint 13 mm metallic foreign body left third finger, sp removal I and D . Joint space infection History of Present Illness History of Present Illness NO limitation in ROM MIldly swolllen as expected post op SHe has a couple of stitches there, wound closed NO fevers ID has changed to dapto and zosyn There is joint space sx so will need PICC and IV abx - dw ID and SW aware CONSTIPATED Wants to shower PLAn: Follow cx\ DApto, zosyn PICC line, will need IV abx BOwel regimen NOW She may shower Vitals Vitals Vital Signs Date Time Temp Pulse Resp B/P (MAP) Pulse Ox O2 Delivery O2 Flow Rate FiO2 04/27/19 07:00 97.8 55 16 123/76 (92) 99 Room Air 97.8 Physical Exam Physical Exam CONSTITUTIONAL: She is pleasant. She is cooperative. She is no acute distress. She is lying in bed. she is smiling and laughing HEENT: Pupils are equal and reactive. Normal conjunctivae. Oral cavity, pharynx is clear. NECK: Supple. Good range of motion. LUNGS: Clear to auscultation bilaterally. HEART: S1, S2. ABDOMEN: Flat, soft, nontender, nondistended with positive bowel sounds. EXTREMITIES: Without clubbing or cyanosis. No gross edema. Her left third finger wound is sutured and clean. No gross warmth or erythema. Swelling has improved and has some ROM. good cap refill but some numbness NEUROLOGIC: She is nonfocal, moves all extremities. Affect - appropriate General: Alert, Cooperative Heart: Regular rate, Normal S1, Normal S2 Lungs: Clear Abdomen: Soft Extremities: No clubbing, No cyanosis, Normal pulses, Other (left middle finger shows distal interphalangeal joint and distal phalanx volar swelling. There is some irritation of the flexor tendon sheath and slight tenderness at the tendon sheath along the middle phalanx. She is unable to completely flex the interphalangeal joint slight range of motion. I believe there is a small joint effusion on examination. The extensor tendon and flexor tendon do seem to be intact. There is no longer any obvious entrance or exit wound. There is erythema and severe tenderness. There is focal swelling of the volar pad of the distal phalanx and some circumferential swelling of the digit. Erythema is present at the distal phalanx. The light touch sensation is intact. She is able to s lightly flex and extend the distal interphalangeal joint actively.) Labs LABS Laboratory Tests Test 04/27/19 09:00 White Blood Count 4.0 x10^3/uL (4.0-11.0) Red Blood Count 4.69 x10^6/uL (3.50-5.40) Hemoglobin 13.2 g/dL (12.0-15.5) Hematocrit 40.5 % (36.0-47.0) Mean Corpuscular Volume 86 fL (79-100) Mean Corpuscular Hemoglobin 28 pg (25-35) Mean Corpuscular Hemoglobin Concent 33 g/dL (31-37) Red Cell Distribution Width 14.1 % (11.5-14.5) Platelet Count 147 x10^3/uL (140-400) Neutrophils (%) (Auto) 48 % (31-73) Lymphocytes (%) (Auto) 43 % (24-48) Monocytes (%) (Auto) 7 % (0-9) Eosinophils (%) (Auto) 1 % (0-3) Basophils (%) (Auto) 0 % (0-3) Neutrophils # (Auto) 1.9 x10^3/uL (1.8-7.7) Lymphocytes # (Auto) 1.7 x10^3/uL (1.0-4.8) Monocytes # (Auto) 0.3 x10^3/uL (0.0-1.1) Eosinophils # (Auto) 0.0 x10^3/uL (0.0-0.7) Basophils # (Auto) 0.0 x10^3/uL (0.0-0.2) Review of Systems Review of Systems pain post op site, rest 14 pt neg Assessment and Plan Assessmemt and Plan Problems Medical Problems: (1) Abscess of tendon sheath, left hand Status: Acute (2) Foreign body of left middle finger with infection Status: Acute (3) Residual foreign body in soft tissue Status: Acute Comment Review of Relevant I have reviewed the following items sharron (where applicable) has been applied. Labs Laboratory Tests Test 04/27/19 09:00 White Blood Count 4.0 x10^3/uL (4.0-11.0) Red Blood Count 4.69 x10^6/uL (3.50-5.40) Hemoglobin 13.2 g/dL (12.0-15.5) Hematocrit 40.5 % (36.0-47.0) Mean Corpuscular Volume 86 fL (79-100) Mean Corpuscular Hemoglobin 28 pg (25-35) Mean Corpuscular Hemoglobin Concent 33 g/dL (31-37) Red Cell Distribution Width 14.1 % (11.5-14.5) Platelet Count 147 x10^3/uL (140-400) Neutrophils (%) (Auto) 48 % (31-73) Lymphocytes (%) (Auto) 43 % (24-48) Monocytes (%) (Auto) 7 % (0-9) Eosinophils (%) (Auto) 1 % (0-3) Basophils (%) (Auto) 0 % (0-3) Neutrophils # (Auto) 1.9 x10^3/uL (1.8-7.7) Lymphocytes # (Auto) 1.7 x10^3/uL (1.0-4.8) Monocytes # (Auto) 0.3 x10^3/uL (0.0-1.1) Eosinophils # (Auto) 0.0 x10^3/uL (0.0-0.7) Basophils # (Auto) 0.0 x10^3/uL (0.0-0.2) Laboratory Tests Test 04/27/19 09:00 White Blood Count 4.0 x10^3/uL (4.0-11.0) Red Blood Count 4.69 x10^6/uL (3.50-5.40) Hemoglobin 13.2 g/dL (12.0-15.5) Hematocrit 40.5 % (36.0-47.0) Mean Corpuscular Volume 86 fL (79-100) Mean Corpuscular Hemoglobin 28 pg (25-35) Mean Corpuscular Hemoglobin Concent 33 g/dL (31-37) Red Cell Distribution Width 14.1 % (11.5-14.5) Platelet Count 147 x10^3/uL (140-400) Neutrophils (%) (Auto) 48 % (31-73) Lymphocytes (%) (Auto) 43 % (24-48) Monocytes (%) (Auto) 7 % (0-9) Eosinophils (%) (Auto) 1 % (0-3) Basophils (%) (Auto) 0 % (0-3) Neutrophils # (Auto) 1.9 x10^3/uL (1.8-7.7) Lymphocytes # (Auto) 1.7 x10^3/uL (1.0-4.8) Monocytes # (Auto) 0.3 x10^3/uL (0.0-1.1) Eosinophils # (Auto) 0.0 x10^3/uL (0.0-0.7) Basophils # (Auto) 0.0 x10^3/uL (0.0-0.2) Microbiology 04/25/19 Blood Culture - Preliminary, Resulted NO GROWTH AFTER 1 DAY Medications Current Medications Lidocaine HCl (Lidocaine 1% 20ml Vial) 20 ml 1X ONCE INJ ; Start 04/25/19 at 09:00; Stop 04/25/19 at 09:01; Status DC Ceftriaxone Sodium (Rocephin) 1 gm Q24H IVP ; Start 04/25/19 at 11:00; Stop 04/25/19 at 11:11; Status DC Sodium Chloride (Normal Saline Flush) 3 ml QSHIFT PRN IV AFTER MEDS AND BLOOD DRAWS; Start 04/25/19 at 10:45 Sodium Chloride 1,000 ml @ 100 mls/hr Q10H IV Last administered on 04/26/19at 20:28; Start 04/25/19 at 10:41 Ondansetron HCl (Zofran) 4 mg PRN Q4HRS PRN IV NAUSEA/VOMITING Last administered on 04/25/19at 12:06; Start 04/25/19 at 10:45 Zolpidem Tartrate (Ambien) 5 mg PRN QHS PRN PO INSOMNIA; Start 04/25/19 at 10:45 Acetaminophen (Tylenol) 650 mg PRN Q4HRS PRN PO TEMP OVER 100.4F OR MILD PAIN Last administered on 04/25/19at 11:50; Start 04/25/19 at 10:45 Al Hydroxide/Mg Hydroxide (Mylanta Plus Xs) 30 ml PRN DAILY PRN PO HEARTBURN / GAS; Start 04/25/19 at 10:45 Clonidine HCl (Catapres) 0.1 mg PRN Q6HRS PRN PO SBP>160 OR DBP>90; Start 04/25/19 at 10:45 Docusate Sodium (Colace) 100 mg PRN BID PRN PO CONSTIPATION Last administered on 04/27/19at 09:12; Start 04/25/19 at 10:45 Albuterol Sulfate (Ventolin Neb Soln) 2.5 mg PRN Q4HRS PRN NEB SHORTNESS OF BREATH; Start 04/25/19 at 10:45 Guaifenesin (Robitussin) 200 mg PRN Q4HRS PRN PO COUGH; Start 04/25/19 at 10:45 Lorazepam (Ativan) 0.5 mg PRN Q4HRS PRN PO ANXIETY / AGITATION; Start 04/25/19 at 10:45 Lorazepam (Ativan Inj) 2 mg PRN Q4HRS PRN IV ANXIETY / AGITATION; Start 04/25/19 at 10:45 Piperacillin Sod/ Tazobactam Sod 4.5 gm/Sodium Chloride 100 ml @ 200 mls/hr Q6HRS IV Last administered on 04/27/19at 05:59; Start 04/25/19 at 12:00 Daptomycin 370 mg/ Sodium Chloride 50 ml @ 100 mls/hr Q24H IV Last administered on 04/26/19at 13:13; Start 04/25/19 at 13:00 Bupivacaine HCl/ Epinephrine Bitart (Sensorcaine-Epi 0.25%-1:822121 Mpf) 30 ml 1X ONCE INJ ; Start 04/25/19 at 13:00; Stop 04/25/19 at 13:01; Status DC Ondansetron HCl (Zofran) 4 mg PRN Q6HRS PRN IV NAUSEA/VOMITING; Start 04/25/19 at 12:30; Stop 04/25/19 at 19:00; Status DC Fentanyl Citrate (Fentanyl 2ml Vial) 25 mcg PRN Q5MIN PRN IV MILD PAIN 1-3; Start 04/25/19 at 12:30; Stop 04/25/19 at 19:00; Status DC Fentanyl Citrate (Fentanyl 2ml Vial) 50 mcg PRN Q5MIN PRN IV MODERATE TO SEVERE PAIN Last administered on 04/25/19at 16:56; Start 04/25/19 at 12:30; Stop 04/25/19 at 19:00; Status DC Morphine Sulfate (Morphine Sulfate) 1 mg PRN Q10MIN PRN IV SEVERE PAIN 7-10; Start 04/25/19 at 12:30; Stop 04/25/19 at 19:00; Status DC Ringer's Solution 1,000 ml @ 30 mls/hr Q24H IV ; Start 04/25/19 at 12:20; Stop 04/25/19 at 19:00; Status DC Lidocaine HCl (Xylocaine-Mpf 1% 2ml Vial) 2 ml PRN 1X PRN ID PRIOR TO IV START; Start 04/25/19 at 12:30; Stop 04/25/19 at 19:00; Status DC Hydromorphone HCl (Dilaudid) 0.5 mg PRN Q10MIN PRN IV SEV PAIN, Second choice; Start 04/25/19 at 12:30; Stop 04/25/19 at 19:00; Status DC Prochlorperazine Edisylate (Compazine) 5 mg PACU PRN PRN IV NAUSEA, MRX1; Start 04/25/19 at 12:30; Stop 04/25/19 at 19:00; Status DC Tetanus/ Diphtheria Toxoids (Tenivac Syringe) 0.5 ml ONCE ONCE VAX IM Last administered on 04/25/19at 13:20; Start 04/25/19 at 13:00; Stop 04/25/19 at 13:01; Status DC Bupivacaine HCl (Sensorcaine Mpf 0.25%) 30 ml STK-MED ONCE .ROUTE Last adminis tered on 04/25/19at 16:17; Start 04/25/19 at 14:31; Stop 04/25/19 at 14:31; Status DC Propofol 20 ml @ As Directed STK-MED ONCE IV ; Start 04/25/19 at 14:49; Stop 04/25/19 at 14:50; Status DC Famotidine (Pepcid Vial) 20 mg STK-MED ONCE .ROUTE ; Start 04/25/19 at 14:49; Stop 04/25/19 at 14:50; Status DC Lidocaine HCl (Xylocaine-Mpf 1% 5ml Vial) 5 ml STK-MED ONCE .ROUTE ; Start at 14:49; Stop 04/25/19 at 14:50; Status DC Fentanyl Citrate (Fentanyl 2ml Vial) 100 mcg STK-MED ONCE .ROUTE ; Start 04/25/19 at 14:50; Stop 04/25/19 at 14:50; Status DC Dexamethasone Sodium Phosphate (Decadron) 4 mg STK-MED ONCE .ROUTE ; Start at 15:26; Stop 04/25/19 at 15:26; Status DC Famotidine (Pepcid Vial) 20 mg STK-MED ONCE .ROUTE ; Start 04/25/19 at 15:26; Stop 04/25/19 at 15:26; Status DC Ondansetron HCl (Zofran) 4 mg STK-MED ONCE .ROUTE ; Start 04/25/19 at 15:26; Stop 04/25/19 at 15:27; Status DC Midazolam HCl (Versed) 2 mg STK-MED ONCE .ROUTE ; Start 04/25/19 at 15:27; Stop 04/25/19 at 15:27; Status DC Phenylephrine HCl (PHENYLEPHRINE in 0.9% NACL PF) 1 mg STK-MED ONCE IV ; Start 04/25/19 at 15:35; Stop 04/25/19 at 15:36; Status DC Ephedrine Sulfate (ePHEDrine PF IN SALINE SYRINGE) 50 mg STK-MED ONCE IV ; Start 04/25/19 at 15:36; Stop 04/25/19 at 15:37; Status DC Celecoxib (CeleBREX) 100 mg BID PO Last administered on 04/27/19at 09:12; Start 04/26/19 at 09:00 Acetaminophen/ Hydrocodone Bitart (Lortab 5/325) 1 tab PRN Q4HRS PRN PO MODERATE PAIN, SEVERE PAIN; Start 04/26/19 at 08:15 Lactobacillus Rhamnosus (Culturelle) 1 cap BID PO Last administered on 04/27/19at 09:12; Start 04/26/19 at 21:00 Active Scripts Active Amoxicillin 500 Mg Capsule 1 Cap PO BID Vitals/I & O Vital Sign - Last 24 Hours 04/26/19 04/26/19 04/26/19 04/26/19 10:55 15:09 19:00 22:59 Temp 98.0 98.0 97.9 97.7 98.0 98.0 97.9 97.7 Pulse 63 60 62 60 Resp 18 18 16 16 B/P (MAP) 110/62 (78) 113/60 (77) 112/57 (75) 99/41 (60) Pulse Ox 99 98 96 99 O2 Delivery Room Air Room Air Room Air Room Air 04/27/19 04/27/19 03:00 07:00 Temp 97.7 97.8 97.7 97.8 Pulse 94 55 Resp 16 16 B/P (MAP) 110/53 (72) 123/76 (92) Pulse Ox 97 99 O2 Delivery Room Air Room Air Intake and Output 04/26/19 04/26/19 04/27/19 15:00 23:00 07:00 Intake Total 1750 ml 1760 ml 210 ml Balance 1750 ml 1760 ml 210 ml MAGEN ANDERSON MD Apr 27, 2019 10:14
[2019-04-27] MEDS ORDERED: POLYETHYLENE GLYCOL 3350 17 GM PACKET. PO ONE (10:15)
[2019-04-27] MEDS ORDERED: MAGNESIUM HYDROXIDE 2,400 MG/30 ML ORAL.SUSP. PO PRN (10:15)
[2019-04-27] MEDS ORDERED: MAGNESIUM HYDROXIDE 2,400 MG/30 ML ORAL.SUSP. PO ONE (10:15)
[2019-04-27] MEDS ORDERED: BISACODYL 10 MG SUPP.RECT. PR PRN (10:15)
[2019-04-27 10:50] VITALS: BP 120/72
--- NOTE | 2019-04-27 11:49 | NUR ---
PICC Pre-Insertion Note- Allergies and reactions NKDA INR 1.0 BUN 9.0 Cr 0.9 Platelets 147 Blood culture done yes blood culture results no growth x 2 days Order Verified yes Consent signed yes Previous PICC placement no Past Medical/Surgical history and current diagnosis reviewed yes Patient Medical /Surgical History Related to PICC line placement Infectious Disease consult Special considerations for PICC line placement None PICC placement indication long term antibiotic usage, name of PICC Nurse Sulma Marrero RN Addendum: 04/27/19 at 1232 by NICOLAS MARRERO RN Amended: Links added.
--- NOTE | 2019-04-27 12:16 | NUR ---
PICC Insertion Note- Procedure: Following complete explanation of the PICC procedure including the indications, risks, and potential complications, informed consent was obtained. The possibility for infection was discussed along with signs, symptoms, and prevention. All the questions were answered. Written and verbal patient education was provided. Hand hygiene performed. Standardized central line checklist was utilized. The patient was placed in the supine position, the arm was prepped with chlorhexidine and patient draped with maximum sterile barrier. 2.5 mL 1% lidocaine was infiltrated into the skin to provide local anesthesia. A thorough assessment of Right upper extremity completed. Using real-time ultrasound guidance and standardized micro puncture set, the Basilic vein was punctured and a peel away sheath was placed using the modified Seldinger technique. A tip location device was used to ensure adequate catheter placement. The catheter was secured using a securement device and an antimicrobial patch was applied directly on the insertion site followed by a transparent dressing. All ports withdraw blood and flush without resistance. Patient tolerated the procedure without apparent complication(s). Double Lumen Power PICC placement successful and uncomplicated. Placement verified by EKG tip confirmation system and/or chest x-ray. Tip located in the CAJ/SVC. Complications: none catheter trimmed at 35cm with 2cm visible at insertion site
[2019-04-27] MEDS: DOCUSATE SODIUM 100 MG CAPSULE. PO SCH ×2 (12:55→21:07)
[2019-04-27] MEDS: IV NORMAL SALINE 1000ML BAG 1,000 ML IV SCH ×2 (12:59→22:17)
[2019-04-27] MEDS: NORMAL SALINE IV SCH (14:30)
[2019-04-27] MEDS: DAPTOMYCIN IV SCH (14:30)
[2019-04-27 14:50] VITALS: BP 119/75
[2019-04-27 19:00] VITALS: BP 99/64
[2019-04-27 23:00] VITALS: BP 95/62
[2019-04-28] MEDS: PIPERACILLIN/TAZOBACTAM 4.5 GM in IV NORMAL SALINE 100ML 100 ML IV SCH ×2 (00:15→06:04)
[2019-04-28 03:00] VITALS: BP 113/71
[2019-04-28 07:00] VITALS: BP 127/77
--- NOTE | 2019-04-28 08:17 | NUR ---
YONY following pt. YONY spoke with Nigel from Pharmacy regarding OP IV abx needs. There is a program for Dapto and Invanz but no programs for Zosyn. ID notified. SW will await for Rx and assist in setting up OP Abx.
[2019-04-28] MEDS: DOCUSATE SODIUM 100 MG CAPSULE. PO SCH (09:00)
[2019-04-28] MEDS ORDERED: POLYETHYLENE GLYCOL 3350 17 GM PACKET. PO SCH (09:00)
[2019-04-28] MEDS: LACTOBACILLUS RHAMNOSUS GG 1 CAPSULE. PO SCH (09:17)
[2019-04-28] MEDS: CELECOXIB 100 MG CAPSULE. PO SCH (09:18)
[2019-04-28] MEDS: IV NORMAL SALINE 1000ML BAG 1,000 ML IV SCH (09:18)
--- NOTE | 2019-04-28 10:22 | PDOC ---
PROGRESS NOTES Chief Complaint Chief Complaint 13 mm metallic foreign body left third finger, sp removal I and D . Joint space infection History of Present Illness History of Present Illness NO limitation in ROM MIldly swolllen as expected post op SHe has a couple of stitches there, wound closed NO fevers ID has changed to dapto and zosyn There is joint space sx so will need PICC and IV abx - dw ID and SW aware - PICC line in SHe showered and moved BM! She feels good PLAn: Will dc once OP IV abx has been figured out Vitals Vitals Vital Signs Date Time Temp Pulse Resp B/P (MAP) Pulse Ox O2 Delivery O2 Flow Rate FiO2 04/28/19 07:00 97.8 63 17 127/77 (94) 98 Room Air 97.8 Physical Exam Physical Exam CONSTITUTIONAL: She is pleasant. She is cooperative. She is no acute distress. She is lying in bed. she is smiling and laughing HEENT: Pupils are equal and reactive. Normal conjunctivae. Oral cavity, pharynx is clear. NECK: Supple. Good range of motion. LUNGS: Clear to auscultation bilaterally. HEART: S1, S2. ABDOMEN: Flat, soft, nontender, nondistended with positive bowel sounds. EXTREMITIES: Without clubbing or cyanosis. No gross edema. Her left third finger wound is sutured and clean. No gross warmth or erythema. Swelling has improved and has some ROM. good cap refill but some numbness NEUROLOGIC: She is nonfocal, moves all extremities. Affect - appropriate General: Alert, Cooperative Heart: Regular rate, Normal S1, Normal S2 Lungs: Clear Abdomen: Soft Extremities: No clubbing, No cyanosis, Normal pulses, Other (left middle finger shows distal interphalangeal joint and distal phalanx volar swelling. There is some irritation of the flexor tendon sheath and slight tenderness at the tendon sheath along the middle phalanx. She is unable to completely flex the interphalangeal joint slight range of motion. I believe there is a small joint effusion on examination. The extensor tendon and flexor tendon do seem to be intact. There is no longer any obvious entrance or exit wound. There is erythema and severe tenderness. There is focal swelling of the volar pad of the distal phalanx and some circumferential swelling of the digit. Erythema is present at the distal phalanx. The light touch sensation is intact. She is able to slightly flex and extend the distal interphalangeal joint actively.) Review of Systems Review of Systems neg 14 pt ROS reviewed with her Assessment and Plan Assessmemt and Plan Problems Medical Problems: (1) Abscess of tendon sheath, left hand Status: Acute (2) Foreign body of left middle finger with infection Status: Acute (3) Residual foreign body in soft tissue Status: Acute Comment Review of Relevant I have reviewed the following items sharron (where applicable) has been applied. Labs Laboratory Tests Test 04/27/19 09:00 White Blood Count 4.0 x10^3/uL (4.0-11.0) Red Blood Count 4.69 x10^6/uL (3.50-5.40) Hemoglobin 13.2 g/dL (12.0-15.5) Hematocrit 40.5 % (36.0-47.0) Mean Corpuscular Volume 86 fL (79-100) Mean Corpuscular Hemoglobin 28 pg (25-35) Mean Corpuscular Hemoglobin Concent 33 g/dL (31-37) Red Cell Distribution Width 14.1 % (11.5-14.5) Platelet Count 147 x10^3/uL (140-400) Neutrophils (%) (Auto) 48 % (31-73) Lymphocytes (%) (Auto) 43 % (24-48) Monocytes (%) (Auto) 7 % (0-9) Eosinophils (%) (Auto) 1 % (0-3) Basophils (%) (Auto) 0 % (0-3) Neutrophils # (Auto) 1.9 x10^3/uL (1.8-7.7) Lymphocytes # (Auto) 1.7 x10^3/uL (1.0-4.8) Monocytes # (Auto) 0.3 x10^3/uL (0.0-1.1) Eosinophils # (Auto) 0.0 x10^3/uL (0.0-0.7) Basophils # (Auto) 0.0 x10^3/uL (0.0-0.2) Erythrocyte Sedimentation Rate 3 (0-25) Sodium Level 146 mmol/L (136-145) Potassium Level 4.6 mmol/L (3.5-5.1) Chloride Level 110 mmol/L (98-107) Carbon Dioxide Level 29 mmol/L (21-32) Anion Gap 7 (6-14) Blood Urea Nitrogen 9 mg/dL (7-20) Creatinine 0.9 mg/dL (0.6-1.0) Estimated GFR (Cockcroft-Gault) 79.9 Glucose Level 81 mg/dL (70-99) Calcium Level 8.9 mg/dL (8.5-10.1) Microbiology 04/25/19 Anaerobic/Aerobic Culture, Resulted Pending 04/25/19 Anaerobic Culture Result 1 (SWATHI), Resulted Pending 04/25/19 Aerobic Culture, Resulted Pending 04/25/19 Aerobic Culture Result 1 (SWATHI), Resulted Pending 04/25/19 Gram Stain - Final, Resulted 04/25/19 Gram Stain Result 1 (SWATHI) - Final, Resulted 04/25/19 Gram Stain Result 2 (SWATHI) - Final, Resulted 04/25/19 Blood Culture - Preliminary, Resulted NO GROWTH AFTER 2 DAYS Medications Current Medications Lidocaine HCl (Lidocaine 1% 20ml Vial) 20 ml 1X ONCE INJ ; Start 04/25/19 at 09:00; Stop 04/25/19 at 09:01; Status DC Ceftriaxone Sodium (Rocephin) 1 gm Q24H IVP ; Start 04/25/19 at 11:00; Stop 04/25/19 at 11:11; Status DC Sodium Chloride (Normal Saline Flush) 3 ml QSHIFT PRN IV AFTER MEDS AND BLOOD DRAWS; Start 04/25/19 at 10:45 Sodium Chloride 1,000 ml @ 100 mls/hr Q10H IV Last administered on 04/28/19at 09:18; Start 04/25/19 at 10:41 Ondansetron HCl (Zofran) 4 mg PRN Q4HRS PRN IV NAUSEA/VOMITING Last administered on 04/25/19at 12:06; Start 04/25/19 at 10:45 Zolpidem Tartrate (Ambien) 5 mg PRN QHS PRN PO INSOMNIA; Start 04/25/19 at 10:45 Acetaminophen (Tylenol) 650 mg PRN Q4HRS PRN PO TEMP OVER 100.4F OR MILD PAIN Last administered on 04/25/19at 11:50; Start 04/25/19 at 10:45 Al Hydroxide/Mg Hydroxide (Mylanta Plus Xs) 30 ml PRN DAILY PRN PO HEARTBURN / GAS; Start 04/25/19 at 10:45 Clonidine HCl (Catapres) 0.1 mg PRN Q6HRS PRN PO SBP>160 OR DBP>90; Start 1 at 10:45 Docusate Sodium (Colace) 100 mg PRN BID PRN PO CONSTIPATION Last administered on 04/27/19at 09:12; Start 04/25/19 at 10:45; Stop 04/27/19 at 10:12; Status DC Albuterol Sulfate (Ventolin Neb Soln) 2.5 mg PRN Q4HRS PRN NEB SHORTNESS OF BREATH; Start 04/25/19 at 10:45 Guaifenesin (Robitussin) 200 mg PRN Q4HRS PRN PO COUGH; Start 04/25/19 at 10:45 Lorazepam (Ativan) 0.5 mg PRN Q4HRS PRN PO ANXIETY / AGITATION; Start 04/25/19 at 10:45 Lorazepam (Ativan Inj) 2 mg PRN Q4HRS PRN IV ANXIETY / AGITATION; Start 04/25/19 at 10:45 Piperacillin Sod/ Tazobactam Sod 4.5 gm/Sodium Chloride 100 ml @ 200 mls/hr Q6HRS IV Last administered on 04/28/19at 06:04; Start 04/25/19 at 12:00 Daptomycin 370 mg/ Sodium Chloride 50 ml @ 100 mls/hr Q24H IV Last admi nistered on 04/27/19at 14:30; Start 04/25/19 at 13:00 Bupivacaine HCl/ Epinephrine Bitart (Sensorcaine-Epi 0.25%-1:189055 Mpf) 30 ml 1X ONCE INJ ; Start 04/25/19 at 13:00; Stop 04/25/19 at 13:01; Status DC Ondansetron HCl (Zofran) 4 mg PRN Q6HRS PRN IV NAUSEA/VOMITING; Start 04/25/19 at 12:30; Stop 04/25/19 at 19:00; Status DC Fentanyl Citrate (Fentanyl 2ml Vial) 25 mcg PRN Q5MIN PRN IV MILD PAIN 1-3; Start 04/25/19 at 12:30; Stop 04/25/19 at 19:00; Status DC Fentanyl Citrate (Fentanyl 2ml Vial) 50 mcg PRN Q5MIN PRN IV MODERATE TO SEVERE PAIN Last administered on 04/25/19at 16:56; Start 04/25/19 at 12:30; Stop 04/25/19 at 19:00; Status DC Morphine Sulfate (Morphine Sulfate) 1 mg PRN Q10MIN PRN IV SEVERE PAIN 7-10; Start 04/25/19 at 12:30; Stop 04/25/19 at 19:00; Status DC Ringer's Solution 1,000 ml @ 30 mls/hr Q24H IV ; Start 04/25/19 at 12:20; Stop 04/25/19 at 19:00; Status DC Lidocaine HCl (Xylocaine-Mpf 1% 2ml Vial) 2 ml PRN 1X PRN ID PRIOR TO IV START; Start 04/25/19 at 12:30; Stop 04/25/19 at 19:00; Status DC Hydromorphone HCl (Dilaudid) 0.5 mg PRN Q10MIN PRN IV SEV PAIN, Second choice; Start 04/25/19 at 12:30; Stop 04/25/19 at 19:00; Status DC Prochlorperazine Edisylate (Compazine) 5 mg PACU PRN PRN IV NAUSEA, MRX1; Start 04/25/19 at 12:30; Stop 04/25/19 at 19:00; Status DC Tetanus/ Diphtheria Toxoids (Tenivac Syringe) 0.5 ml ONCE ONCE VAX IM Last administered on 04/25/19at 13:20; Start 04/25/19 at 13:00; Stop 04/25/19 at 13:01; Status DC Bupivacaine HCl (Sensorcaine Mpf 0.25%) 30 ml STK-MED ONCE .ROUTE Last administered on 04/25/19at 16:17; Start 04/25/19 at 14:31; Stop 04/25/19 at 14:31; Status DC Propofol 20 ml @ As Directed STK-MED ONCE IV ; Start 04/25/19 at 14:49; Stop 04/25/19 at 14:50; Status DC Famotidine (Pepcid Vial) 20 mg STK-MED ONCE .ROUTE ; Start 04/25/19 at 14:49; Stop 04/25/19 at 14:50; Status DC Lidocaine HCl (Xylocaine-Mpf 1% 5ml Vial) 5 ml STK-MED ONCE .ROUTE ; Start 04/25/19 at 14:49; Stop 04/25/19 at 14:50; Status DC Fentanyl Citrate (Fentanyl 2ml Vial) 100 mcg STK-MED ONCE .ROUTE ; Start 04/25/19 at 14:50; Stop 04/25/19 at 14:50; Status DC Dexamethasone Sodium Phosphate (Decadron) 4 mg STK-MED ONCE .ROUTE ; Start 04/25/19 at 15:26; Stop 04/25/19 at 15:26; Status DC Famotidine (Pepcid Vial) 20 mg STK-MED ONCE .ROUTE ; Start 04/25/19 at 15:26; Stop 04/25/19 at 15:26; Status DC Ondansetron HCl (Zofran) 4 mg STK-MED ONCE .ROUTE ; Start 04/25/19 at 15:26; Stop 04/25/19 at 15:27; Status DC Midazolam HCl (Versed) 2 mg STK-MED ONCE .ROUTE ; Start 04/25/19 at 15:27; Stop 04/25/19 at 15:27; Status DC Phenylephrine HCl (PHENYLEPHRINE in 0.9% NACL PF) 1 mg STK-MED ONCE IV ; Start 04/25/19 at 15:35; Stop 04/25/19 at 15:36; Status DC Ephedrine Sulfate (ePHEDrine PF IN SALINE SYRINGE) 50 mg STK-MED ONCE IV ; Start 04/25/19 at 15:36; Stop 04/25/19 at 15:37; Status DC Celecoxib (CeleBREX) 100 mg BID PO Last administered on 04/28/19at 09:18; Start 04/26/19 at 09:00 Acetaminophen/ Hydrocodone Bitart (Lortab 5/325) 1 tab PRN Q4HRS PRN PO MODERATE PAIN, SEVERE PAIN; Start 04/26/19 at 08:15 Lactobacillus Rhamnosus (Culturelle) 1 cap BID PO Last administered on 04/28/19at 09:17; Start 04/26/19 at 21:00 Docusate Sodium (Colace) 100 mg BID PO Last administered on 04/27/19at 21:07; Start 04/27/19 at 10:15 Polyethylene Glycol (miraLAX PACKET) 17 gm 1X ONCE PO Last administered on 04/27/19at 12:55; Start 04/27/19 at 10:15; Stop 04/27/19 at 10:16; Status DC Polyethylene Glycol (miraLAX PACKET) 17 gm DAILY PO ; Start 04/28/19 at 09:00 Magnesium Hydroxide (Milk Of Magnesia) 2,400 mg 1X ONCE PO Last administered on 04/27/19at 12:55; Start 04/27/19 at 10:15; Stop 04/27/19 at 10:16; Status DC Magnesium Hydroxide (Milk Of Magnesia) 2,400 mg PRN DAILY PRN PO CONSTIPATION; Start 04/27/19 at 10:15 Bisacodyl (Dulcolax Supp) 10 mg PRN DAILY PRN DC CONSTIPATION; Start 04/27/19 at 10:15 Active Scripts Active Amoxicillin 500 Mg Capsule 1 Cap PO BID Vitals/I & O Vital Sign - Last 24 Hours 04/27/19 04/27/19 04/27/19 04/27/19 10:50 14:50 19:00 20:00 Temp 97.8 97.7 98.8 97.8 97.7 98.8 Pulse 58 60 71 Resp 16 16 16 B/P (MAP) 120/72 (88) 119/75 (90) 99/64 (76) Pulse Ox 99 99 100 O2 Delivery Room Air Room Air Room Air Room Air 04/27/19 04/28/19 04/28/19 23:00 03:00 07:00 Temp 98.2 97.7 97.8 98.2 97.7 97.8 Pulse 67 65 63 Resp 16 16 17 B/P (MAP) 95/62 (73) 113/71 (85) 127/77 (94) Pulse Ox 99 99 98 O2 Delivery Room Air Room Air Room Air Intake and Output 04/27/19 04/27/19 04/28/19 15:00 23:00 07:00 Intake Total 600 ml 300 ml 0 ml Balance 600 ml 300 ml 0 ml MAGEN ANDERSON MD Apr 28, 2019 10:22
[2019-04-28] MEDS ORDERED: HYDR-2761 PO (10:23)
[2019-04-28] MEDS ORDERED: CELE100C PO (10:23)
--- NOTE | 2019-04-28 10:36 | PDOC ---
Infectious Disease Note Subjective Subjective Doing well and wanting to go home. No gross pain but says she has some numbness - some better No F/C/S/N/V/d/SOA/rash ROS ROS o/w neg Vital Sign Vital Signs Vital Signs Date Time Temp Pulse Resp B/P (MAP) Pulse Ox O2 Delivery O2 Flow Rate FiO2 04/28/19 07:00 97.8 63 17 127/77 (94) 98 Room Air 97.8 Physical Exam PHYSICAL EXAM CONSTITUTIONAL: She is pleasant. She is cooperative. She is no acute distress. She is lying in bed. she is smiling and laughing HEENT: Pupils are equal and reactive. Normal conjunctivae. Oral cavity, pharynx is clear. NECK: Supple. Good range of motion. LUNGS: Clear to auscultation bilaterally. HEART: S1, S2. ABDOMEN: Flat, soft, nontender, nondistended with positive bowel sounds. EXTREMITIES: Without clubbing or cyanosis. No gross edema. Her left third finger wound is sutured and clean. No gross warmth or erythema. Swelling continues to improve and has some ROM. good cap refill but some numbness NEUROLOGIC: She is nonfocal, moves all extremities. Affect - appropriate IV: RUE PICC -clean Labs Micro IMPRESSION: 13 mm metallic nail within the distal third digit of the left hand Objective Assessment Left 3 rd finger cellulitis 3 rd finger ? abscess s/p I and D - cult pending based on Op - report joint was involved Foreign body - needle removed 04/25 HTN Plan Plan of Care D/cont zosyn Dose Invanz Dapto Home Dapto/invanz last dose 05/15 Rx in chart Q Thursday CBC/CPK/Cr/LFTs Call ID vocational rehabilitation specialist for F/u week of 05/09 TDAP 04/25 F/u labs and cults D/w nursing MITCHELL WESTBROOK MD Apr 28, 2019 10:36
[2019-04-28 11:00] VITALS: BP 117/60
[2019-04-28] MEDS ORDERED: ERTAPENEM 1GM IVPB (GENERIC) 50 ML IV ONE (11:00)
--- NOTE | 2019-04-28 12:45 | NUR ---
SW following pt. Orders faxed to OP Clinic and pt is scheduled for tomorrow at 0900. Pt has transportation and denies other needs. Admin notified re abx. Discussed with RN.
--- NOTE | 2019-04-28 12:51 | PDOC3 ---
Discharge Summary Visit Information Date of Admission: Apr 25, 2019 Date of Discharge: Apr 28, 2019 Admitting Diagnosis Comment: 13 mm metallic foreign body left third finger, sp removal I and D Joint space infection Final Diagnosis Problems Medical Problems: (1) Abscess of tendon sheath, left hand Status: Acute (2) Foreign body of left middle finger with infection Status: Acute (3) Residual foreign body in soft tissue Status: Acute Brief Hospital Course Allergies Allergies Coded Allergies Type Severity Reaction Last Updated Verified No Known Drug Allergies 03/02/17 No Vital Signs Vital Signs Date Time Temp Pulse Resp B/P (MAP) Pulse Ox O2 Delivery O2 Flow Rate FiO2 04/28/19 11:00 97.8 60 18 117/60 (79) 100 Room Air 97.8 Lab Results Laboratory Tests Test 04/27/19 09:00 White Blood Count 4.0 x10^3/uL (4.0-11.0) Red Blood Count 4.69 x10^6/uL (3.50-5.40) Hemoglobin 13.2 g/dL (12.0-15.5) Hematocrit 40.5 % (36.0-47.0) Mean Corpuscular Volume 86 fL (79-100) Mean Corpuscular Hemoglobin 28 pg (25-35) Mean Corpuscular Hemoglobin Concent 33 g/dL (31-37) Red Cell Distribution Width 14.1 % (11.5-14.5) Platelet Count 147 x10^3/uL (140-400) Neutrophils (%) (Auto) 48 % (31-73) Lymphocytes (%) (Auto) 43 % (24-48) Monocytes (%) (Auto) 7 % (0-9) Eosinophils (%) (Auto) 1 % (0-3) Basophils (%) (Auto) 0 % (0-3) Neutrophils # (Auto) 1.9 x10^3/uL (1.8-7.7) Lymphocytes # (Auto) 1.7 x10^3/uL (1.0-4.8) Monocytes # (Auto) 0.3 x10^3/uL (0.0-1.1) Eosinophils # (Auto) 0.0 x10^3/uL (0.0-0.7) Basophils # (Auto) 0.0 x10^3/uL (0.0-0.2) Erythrocyte Sedimentation Rate 3 (0-25) Sodium Level 146 mmol/L (136-145) Potassium Level 4.6 mmol/L (3.5-5.1) Chloride Level 110 mmol/L (98-107) Carbon Dioxide Level 29 mmol/L (21-32) Anion Gap 7 (6-14) Blood Urea Nitrogen 9 mg/dL (7-20) Creatinine 0.9 mg/dL (0.6-1.0) Estimated GFR (Cockcroft-Gault) 79.9 Glucose Level 81 mg/dL (70-99) Calcium Level 8.9 mg/dL (8.5-10.1) Brief Hospital Course Ms. Swain is a 49 old AA female who hurt her left finger while cleaning the floor (wasnt wearing protective gloves), she has a 13 mm metallic object lodged there that needed I & D, Unfortunately, jt space was involved so need IV abx PICC and we have arranged for that with ID 2 notes today SP. NO pT needs Discharge Information Condition at Discharge: Improved, Stable Disposition/Orders: D/C to Home Scheduled Amoxicillin (Amoxicillin) 500 Mg Capsule, 1 CAP PO BID, #20 Prescribed by: HEATHER MORAN APRN on 03/02/171755 Last Action: HELD on 04/25/19 1037 by FERNANDO MELENDREZ MD Celecoxib (Celebrex) 100 Mg Capsule, 100 MG PO BID for pain and inflammation, #14 Prescribed by: MAGEN ANDERSON on 04/28/19 1023 Scheduled PRN Hydrocodone Bit/Acetaminophen (Hydrocodone-Apap 5-325 ) 1 Tab Tablet, 1 TAB PO PRN Q4HRS PRN for MODERATE PAIN, SEVERE PAIN, #20 Prescribed by: MAGEN ANDERSON on 04/28/19 1023 MAGEN ANDERSON MD Apr 28, 2019 12:51
[2019-04-28] MEDS: NORMAL SALINE IV SCH (13:51)
[2019-04-28] MEDS: DAPTOMYCIN IV SCH (13:51)
[2019-04-28 15:00] VITALS: BP 119/60
--- NOTE | 2019-04-28 16:30 | NUR ---
Discharge Note: [facility] Discharge instructions and discharge home medications reviewed with Patient and a copy given. All questions have been answered and understanding verbalized. The following instructions and handouts were given: Discharge Instructions, Prescriptions, Instructions for Outpatient IV Antiobiotic Therapy Discontinued lines and drains: R Arm PICC Line Remains intact at Discharge for Outpatient IV Therapy . Patient discharged to Home with Self-Care via Personal Vehicle
--- NOTE | 2019-04-29 20:06 | PATHOLOGY ---
[facility] Accession Number: [id number] . 01 Material submitted: . finger - FOREIGN BODY LEFT MIDDLE FINGER. Modifiers: left, middle . 01 Clinical history: . Abscess of tendon sheath left hand with residual foreign body . 02 Diagnosis: Foreign body, clinically from left middle finger (gross examination only): - See gross description. . (JPM:mm; 04/29/2019) [facility] 04/29/2019 1554 Local . 02 Electronically signed: . Gt Garcia MD, Pathologist NPI- [id number] . 01 Gross description: . Received fresh, labeled "Stoney Swain, foreign body left middle finger", consists of a silver metallic pin measuring 1.5 cm in length with less than 0.1 cm diameter. A photograph is taken. Gross only. ([facility]; 04/26/2019) [facility] 04/26/2019 1726 Local . 02 Pathologist provided ICD-10: Z18.10 . 02 CPT . 840357 Specimen Comment: A courtesy copy of this report has been sent to Specimen Comment: [phone]. Specimen Comment: Report sent to / DR MELENDREZ Performed at: 01 [facility] [address], [place] [id number] MD Eric Jimenes MD Phone: [phone] Performed at: 02 [facility] [address] [place], [place] [id number] MD Gt Garcia MD Phone: [phone]
== END 2019-04-28 16:05 | disposition home or self-care (01) | DRG 514 ==
LOC: ER 08:35 → 5 SOUTH 09:39
PROVIDERS: ADMIT Family Medicine; ATTEND Family Medicine
PROC: 0L980ZZ Drainage of Left Hand Tendon, Open Approach (ICD-10-PCS; 2019-04-25)
PROC: 0LC80ZZ Extirpation of Matter from Left Hand Tendon, Open Approach (ICD-10-PCS; principal; 2019-04-25 15:00)
PROC: 02HV33Z Insertion of Infusion Device into Superior Vena Cava, Percutaneous Approach (ICD-10-PCS; 2019-04-27)
PROC: B548ZZA Ultrasonography of Superior Vena Cava, Guidance (ICD-10-PCS; 2019-04-27)
DX: M65.042 Abscess of tendon sheath, left hand (principal); S60.453A Superficial foreign body of left middle finger, initial encounter; F17.210 Nicotine dependence, cigarettes, uncomplicated; I10 Essential (primary) hypertension; K59.00 Constipation, unspecified; L03.012 Cellulitis of left finger; M79.5 Residual foreign body in soft tissue; Z80.3 Family history of malignant neoplasm of breast; Z82.49 Family history of ischemic heart disease and other diseases of the circulatory system; Z90.711 Acquired absence of uterus with remaining cervical stump; Z98.891 History of uterine scar from previous surgery; X58.XXXA Exposure to other specified factors, initial encounter; Y93.89 Activity, other specified; Y92.89 Other specified places as the place of occurrence of the external cause; Y99.8 Other external cause status
CPT/HCPCS: 36415; 36569; 73140; 80048; 80053; 85025; 85610; 85651; 87040; 87071; 87075; 88300; 90471; 90714; A7015; J0171; J0878; J1100; J1335; J2250; J2370; J2405; J2543; J2704; J3010; J3490; J7030; 99285-25; A4461; G0378